=== PATIENT | female | born 1970 | race Caucasian/White ===

== ENCOUNTER → 2017-05-29 10:22 | Outpatient (CLI) | payer OTHER | END | disposition home or self-care (01) | LOC: D.MRI 10:22 | DX: M25.562 Pain in left knee (principal) ==

== ENCOUNTER 2017-07-06 07:05 | Day surgery (SDC) | payer OTHER ==
[2017-07-03 11:27] LABS: HEMATOCRIT 41.5 % (36.0-48.0); HEMOGLOBIN 13.6 g/dL (12-16); MCH 29.4 pg (26.0-34.0); MCHC 32.8 g/dL (31.0-37.0); MCV 89.8 fL (80.0-100.0); MEAN PLATELET VOLUME 9.9 fL (7.4-10.4); RBC 4.62 10x6/uL (4.00-5.40); RDW 14.4 % (11.5-14.5); WBC 7.7 10x3/uL (4.8-10.8)
[2017-07-03 11:51] LABS: CALC OSMOLALITY 277 mosm/kg (275-300); CALCIUM 9.2 mg/dL (8.5-10.1); CARBON DIOXIDE 31.8 mmol/L (21.0-32.0); CHLORIDE - SERUM 102 mmol/L (98-107); CREATININE - SERUM 0.8 mg/dL (0.6-1.3); GLUCOSE 100 mg/dL (74-106); POTASSIUM - SERUM 3.6 mmol/L (3.5-5.1); SODIUM 139 mmol/L (136-145); UREA NITROGEN 12 mg/dL (7-18); eGFR NON AFRICAN AMERICAN 82 mL/min (90-120)
[~2017-07-06] VITALS: Ht 157.5 cm; Wt 117.9 kg
[~2017-07-06 07:05] MED LIST: LISINOPRIL-HCTZ1 T13 PO
[2017-07-06 14:33] VITALS: BP 162/92; Ht 157.5 cm; Wt 117.9 kg
[2017-07-06] MEDS ORDERED: HYDROCODONE-APA1 TAB PO (17:25)
--- NOTE | 2017-08-07 10:59 | OP ---
PATIENT NAME: KYLAH ACHARYA MEDICAL RECORD: [id number] LOCATION:[facility] ADMISSION DATE: SURGEON: JEREMI SHEFFIELD MD DATE OF OPERATION: 07/06/2017 PREOPERATIVE DIAGNOSIS: Patellofemoral syndrome. POSTOPERATIVE DIAGNOSIS: Patellofemoral syndrome. PROCEDURE: Left knee arthroscopy with arthroscopic lateral release. SURGEON: Jeremi Sheffield MD ANESTHESIA: General. INTRAOPERATIVE COMPLICATIONS: None. SUMMARY OF PATHOLOGIC FINDINGS: The patient was found to have patellofemoral tracking disorders as previously identified. OPERATIVE SUMMARY IN DETAIL: After obtaining the appropriate preoperative orthopedic surgery consent as well as anesthetic consultation, evaluation and clearance, the patient was brought to the operating room and placed on the operating table in supine position. After general laryngeal mask was administered, tourniquet was placed about the proximal aspect of the left lower extremity. Left lower extremity was then prepped and draped in routine sterile fashion. The leg was elevated and exsanguinated, tourniquet inflated to 350 mmHg. Routine inferolateral portal was established followed by superomedial portal and inferomedial portal. Diagnostic arthroscopy did show the patient to have patellofemoral tracking disorder. The Wing tissue ablation system was utilized to release the lateral retinaculum from the vastus lateralis all the way to the inferior lateral portal. Having completed this, the knee was insufflated with 30 cc of 0.25% Marcaine with epinephrine and 40 mg of Depo-Medrol. Arthroscopy portals were closed in routine interrupted fashion using 4-0 Prolene. Sterile dressings were applied. The patient was awakened, taken to recovery in stable condition. All final needle and sponge counts were correct. TRANSINT:[id number] Voice Confirmation ID: [id number] DOCUMENT ID: [id number] JEREMI SHEFFIELD MD at 1059 CC: [id number] DICTATION DATE: 08/06/17 1436 CONTROL PANEL OPERATOR CRUDE UNIT: 08/06/17 2221 DEP [facility] [place] 07/06/[address] [id number]
== END 2017-07-06 19:45 | disposition home or self-care (01) ==
LOC: D.OPS 07:05 → D.PAN 14:50 → D.OPS 16:15 → D.PAN 17:10 → D.OPS 17:10
PROVIDERS: Anesthesiology
DX: M25.562 Pain in left knee (principal); Z01.810 Encounter for preprocedural cardiovascular examination; Z01.811 Encounter for preprocedural respiratory examination; Z01.812 Encounter for preprocedural laboratory examination; I10 Essential (primary) hypertension